=== PATIENT | female | born 1955 | race Caucasian/White ===

== ENCOUNTER 2018-12-31 10:26 | Outpatient (CLI) | payer BC ==
--- NOTE | 2018-12-31 13:28 | MMO ---
Bilateral MAMMO Bilat Screen [facility]. CLINICAL HISTORY: Patient is 63 years old and is seen for screening. The patient has no family history of breast cancer. The patient has no personal history of cancer. VIEWS: The views performed were: bilateral craniocaudal with tomosynthesis and bilateral mediolateral oblique with tomosynthesis. FILMS COMPARED: The present examination has been compared to prior imaging studies performed at [facility] on 11/19/2014, 05/26/2015, 05/15/2016 and 05/17/2017. This study has been interpreted with the assistance of computer-aided detection. MAMMOGRAM FINDINGS: There are scattered fibroglandular densities. There are no suspicious masses, suspicious calcifications, or new areas of architectural distortion. IMPRESSION: THERE IS NO MAMMOGRAPHIC EVIDENCE OF MALIGNANCY. A ROUTINE FOLLOW-UP MAMMOGRAM IN 1 YEAR IS RECOMMENDED. THE RESULTS OF THIS EXAM WERE SENT TO THE PATIENT. ACR BI-RADS Category 1 - Negative MAMMOGRAPHY NOTE: 1. A negative mammogram report should not delay a biopsy if a dominant of clinically suspicious mass is present. 2. Approximately 10% to 15% of breast cancers are not detected by mammography. 3. Adenosis and dense breasts may obscure an underlying neoplasm. Reported by: ANNI ESTRADA MD Electonically Signed: [id number]
== END 2018-12-31 10:27 | disposition home or self-care (01) ==
LOC: BICMAMMO 10:26
PROVIDERS: ATTEND Family Medicine
DX: Z12.31 Encounter for screening mammogram for malignant neoplasm of breast (principal)
CPT/HCPCS: 77063; 77067

== ENCOUNTER 2019-05-07 13:58 | Outpatient (CLI) | payer MEDICARE, BC ==
--- NOTE | 2019-05-07 14:55 | RAD ---
2 views of the lumbar spine: 05/07/2019 COMPARISON: None HISTORY: Low back pain, injury 25 years ago FINDINGS: There is disc space narrowing with degenerative endplate change and posterior osteophyte fo rmation at L5-S1. Bilateral facet hypertrophy of the L5-S1 level. Mild disc space narrowing with degenerative endplate change and anterior osteophyte formation at T12- L1 L1-2 and L2-3. 5 lumbar type vertebral bodies are present with intact pedicles on frontal imaging. No acute fracture . IMPRESSION: Lumbar spine degenerative change. No acute fracture or dislocation.
[2019-05-07 16:56] LABS: Amphetamine Detected (NotDetected); Barbiturates Screen Not Detected (NotDetected); Benzodiazepine Screen Detected (NotDetected); Cocaine Metabolite Screen Not Detected (NotDetected); Medtox Control Line Valid? VALID (VALID); Methadone Not Detected (NotDetected); Methamphetamine Not Detected (NotDetected); Opiate Screen Not Detected (NotDetected); Oxycodone Screen Not Detected (NotDetected); Phencyclidine (PCP) Not Detected (NotDetected); THC/Cannabinoid Screen Not Detected (NotDetected); Tricyclic Screen Not Detected (NotDetected)
== END 2019-05-07 13:59 | disposition home or self-care (01) ==
LOC: SCSRAD 13:58
PROVIDERS: ATTEND Internal Medicine Rheumatology
DX: M47.816 Spondylosis without myelopathy or radiculopathy, lumbar region (principal); F33.0 Major depressive disorder, recurrent, mild; F41.1 Generalized anxiety disorder
CPT/HCPCS: 72100; 80306

== ENCOUNTER 2019-12-12 07:58 | Outpatient (CLI) | payer MEDICARE, BC ==
--- NOTE | 2019-12-12 08:36 | BD ---
EXAM: DEXA bone density examination HISTORY: 64-year-old postmenopausal female for screening COMPARISON: None FINDINGS: L1--bone mineral density 1.016 g/sq cm; T score 0.2 L2--bone mineral density 1.012 g/sq cm; T score -0.1 L3--bone mineral density 1.149 g/sq cm; T score 0.6 L4--bone mineral density 1.190 g/sq cm; T score 1.2 Total L1-L4--bone mineral density 1.100 g/sq cm; T score 0.5 Left femoral neck--bone mineral density0.732; T score -1.1 Total proximal left femur--bone mineral density 0.982; T score 0.3 WHO classification: Osteopenia 10 year fracture risk Major osteoporotic fracture: 7.9% Hip fracture: 0.6% IMPRESSION: Osteopenia with elevated fracture risk as above.
== END 2019-12-12 07:59 | disposition home or self-care (01) ==
LOC: BICMAMMO 07:58
PROVIDERS: ATTEND Internal Medicine Rheumatology
DX: M81.0 Age-related osteoporosis without current pathological fracture (principal)
CPT/HCPCS: 77080

== ENCOUNTER 2020-06-14 08:54 | Outpatient (CLI) | payer MEDICARE, BC | END 2020-06-14 08:55 | disposition home or self-care (01) | LOC: BICMAMMO 08:54 | PROVIDERS: ATTEND Family Medicine Sports Medicine | DX: Z12.31 Encounter for screening mammogram for malignant neoplasm of breast (principal) | CPT/HCPCS: 77063; 77067 ==

== ENCOUNTER 2021-07-15 09:13 | Outpatient (CLI) | payer MEDICARE, BC | END 2021-07-15 09:14 | disposition home or self-care (01) | LOC: BICMAMMO 09:13 | PROVIDERS: ATTEND Family Medicine Sports Medicine | DX: Z12.31 Encounter for screening mammogram for malignant neoplasm of breast (principal) | CPT/HCPCS: 77063; 77067 ==

== ENCOUNTER 2024-11-04 10:48 | Outpatient (CLI) | payer MEDICARE | END 2024-11-04 10:49 | disposition home or self-care (01) | LOC: BICMAMMO 10:48 | PROVIDERS: ATTEND Family Medicine Sports Medicine | DX: Z12.31 Encounter for screening mammogram for malignant neoplasm of breast (principal) | CPT/HCPCS: 77063; 77067 ==